=== PATIENT | male | born 1995 | race African-American/Black ===

== ENCOUNTER 2024-06-17 18:12 | Emergency (ER) | payer BC ==
[~2024-06-17] VITALS: Ht 175.3 cm; Wt 111.6 kg
[2024-06-17] MEDS: ONDANSETRON HCL/PF 4 MG/2 ML VIAL IVP ONE (18:30)
[2024-06-17] MEDS: KETOROLAC TROMETHAMINE 15 MG/ML VIAL IV ONE (18:30)
[2024-06-17] MEDS ORDERED: KETOROLAC TROMETHAMINE 15 MG/ML VIAL ONE (18:40)
[2024-06-17] MEDS: IV NS 0.9% 1,000 ML BAG IV ONE (18:40)
[2024-06-17] MEDS ORDERED: DICYCLOMINE HCL INJ 20 MG/2 ML AMPUL IM ONE (18:40)
[2024-06-17] MEDS ORDERED: ONDANSETRON HCL/PF 4 MG/2 ML VIAL ONE (18:41)
[2024-06-17 18:42] LABS: BASOPHILS % (AUTO) 0.5 % (0.0-2.0); EOSINOPHILS % (AUTO) 0.1 % (0.0-6.0); HEMATOCRIT 43 % (39-51); HEMOGLOBIN 14.9 g/dL (13.5-17.5); LYMPHOCYTES # (AUTO) 1.1 K/uL (0.8-4.8); MEAN CORPUSCULAR HEMOGLOBIN 27 PG (26.0-33.0); MEAN CORPUSCULAR HGB CONC 34 g/dl (31.0-36.0); MEAN CORPUSCULAR VOLUME 80 fL (80-96); MONOCYTES # (AUTO) 1.4 K/uL (0.1-1.30); MONOCYTES % (AUTO) 16.5 % (2.0-12.0); NEUTROPHILS # (AUTO) 5.6 K/uL (1.8-8.9); NEUTROPHILS % (AUTO) 68.9 % (43.0-81.0); PLATELET COUNT (AUTO) 277 K/uL (150-450); RED BLOOD CELL COUNT(AUTO) 5.46 MIL/uL (4.5-6.0); RED CELL DISTRIBUTION WIDTH 14.4 % (11.5-15.0); WHITE BLOOD COUNT (AUTO) 8.2 K/uL (4.3-11.0)
[2024-06-17 18:49] LABS: CREATININE 1.6 mg/dL (0.6-1.3); POTASSIUM 3.5 mmol/L (3.5-5.1)
[2024-06-17] MEDS: DICYCLOMINE HCL INJ 20 MG/2 ML AMPUL IM ONE (18:50)
[2024-06-17 18:55] LABS: ALBUMIN 4.4 g/dL (3.4-5.0); BILIRUBIN,DIRECT 0.1 mg/dL (0.0-0.2); BILIRUBIN,TOTAL 0.5 mg/dL (0.2-1.0); TOTAL PROTEIN, SERUM 9.5 g/dL (6.4-8.2)
[2024-06-17] MEDS ORDERED: DICY10CA37 PO (19:19)
[2024-06-17] MEDS ORDERED: ONDA4TAB11 PO (19:19)
[2024-06-17 19:23] LABS: LYMPHOCYTES % (MANUAL) 17 % (16-48); MONOCYTES % (MANUAL) 8 % (0-11.0); NEUTROPHILS % (MANUAL) 75 (42-76); PLATELET ESTIMATE ADEQUATE
[2024-06-17 19:24] LABS: ANISOCYTOSIS 1+
[2024-06-17 19:51] VITALS: BP 136/75; TEMP 98; O2SAT 98
== END 2024-06-17 19:52 | disposition home or self-care (01) ==
LOC: ER 18:25
DX: R11.2 Nausea with vomiting, unspecified (principal); R19.7 Diarrhea, unspecified
CPT/HCPCS: 99284; 96374; 96361; 96375; 85025; 80048; 83690; 80076; 36415; 96372; 85007; J2405; J7030; J0500; J1885

== ENCOUNTER 2024-06-19 02:05 | Emergency (ER) | payer BC ==
[~2024-06-19] VITALS: Ht 175.3 cm; Wt 117.5 kg
[~2024-06-19 02:05] MED LIST: DICY10CA37 PO; ONDA4TAB11 PO
[2024-06-19] MEDS ORDERED: ONDANSETRON HCL/PF 4 MG/2 ML VIAL ONE (04:22)
[2024-06-19] MEDS ORDERED: MORPHINE SULFATE INJ 2 MG/ML DISP.SYRIN ONE (04:22)
[2024-06-19] MEDS: ONDANSETRON HCL/PF - ER 4 MG/2 ML VIAL IV ONE (04:30)
[2024-06-19] MEDS: MORPHINE SULFATE INJ 2 MG/ML DISP.SYRIN IV ONE (04:30)
[2024-06-19 04:42] LABS: BASOPHILS % (AUTO) 0.7 % (0.0-2.0); EOSINOPHILS % (AUTO) 0.3 % (0.0-6.0); HEMATOCRIT 41 % (39-51); LYMPHOCYTES % (AUTO) 32.3 % (20.0-44.0); MEAN CORPUSCULAR HEMOGLOBIN 27 PG (26.0-33.0); MEAN CORPUSCULAR HGB CONC 34 g/dl (31.0-36.0); MEAN CORPUSCULAR VOLUME 80 fL (80-96); MONOCYTES % (AUTO) 15.7 % (2.0-12.0); NEUTROPHILS # (AUTO) 3.1 K/uL (1.8-8.9); PLATELET COUNT (AUTO) 258 K/uL (150-450); RED BLOOD CELL COUNT(AUTO) 5.12 MIL/uL (4.5-6.0); RED CELL DISTRIBUTION WIDTH 14.3 % (11.5-15.0); WHITE BLOOD COUNT (AUTO) 6.1 K/uL (4.3-11.0)
[2024-06-19 04:49] LABS: CALCIUM, SERUM 8.7 mg/dL (8.5-10.1); CREATININE 1.3 mg/dL (0.6-1.3); POTASSIUM 3.4 mmol/L (3.5-5.1)
[2024-06-19 04:55] LABS: ALBUMIN 3.8 g/dL (3.4-5.0); BILIRUBIN,TOTAL 0.3 mg/dL (0.2-1.0); TOTAL PROTEIN, SERUM 8.3 g/dL (6.4-8.2)
[2024-06-19 05:28] LABS: BAND % (MANUAL) 1 % (0.0-5.0); LYMPHOCYTES % (MANUAL) 34 % (16-48); MONOCYTES % (MANUAL) 10 % (0-11.0); NEUTROPHILS % (MANUAL) 55 (42-76); PLATELET ESTIMATE ADEQUATE
[2024-06-19] MEDS ORDERED: GABA-532 PO (06:04)
[2024-06-19] MEDS: POTASSIUM CHLORIDE 10 MEQ TABLET.SA PO ONE (08:00)
[2024-06-19] MEDS ORDERED: POTASSIUM CHLORIDE 10 MEQ TABLET.SA ONE (08:02)
[2024-06-19] MEDS ORDERED: AMOX-430 PO (08:57)
[2024-06-19] MEDS ORDERED: GABAPENTIN 100 MG CAPSULE ONE (09:03)
[2024-06-19] MEDS ORDERED: AMOX/CLAVULANATE 875 MG TABLET ONE (09:03)
[2024-06-19] MEDS: AMOX/CLAVULANATE 875 MG TABLET PO ONE (09:08)
[2024-06-19] MEDS: GABAPENTIN 100 MG CAPSULE PO ONE (09:08)
[2024-06-19 09:54] VITALS: BP 136/70; TEMP 98.5; O2SAT 99
== END 2024-06-19 10:01 | disposition home or self-care (01) ==
LOC: ER 02:06
DX: R51.9 Headache, unspecified (principal); L84 Corns and callosities
CPT/HCPCS: 99285; 96374; 70450; 96375; 73630; 85025; 36415; 80053; 85007; J2405 ×2; J2270